=== PATIENT | female | born 1955 | race Caucasian/White ===

== ENCOUNTER 2022-10-30 08:29 | Day surgery (SDC) | payer MEDICARE ==
[2022-10-30] MEDS ORDERED: LIDOCAINE HCL 2% 100 MG/5 ML IJ ONE (08:30)
[2022-10-30] MEDS ORDERED: Versed 2 MG/2 ML Injection IV ONE (09:07)
[2022-10-30] MEDS ORDERED: Versed 2 MG/2 ML Injection ONE (09:09)
[2022-10-30] MEDS ORDERED: DIPRIVAN 200 MG/20 ML IV ONE (09:46)
[2022-10-30] MEDS ORDERED: Lactated Ringers 1,000 ML IV ONE (11:10)
--- NOTE | 2022-10-30 11:48 | XRAY ---
Indication: Bilateral L4-S1 MBB. Intraoperative fluoroscopy provided for 14 seconds. Single digital spot image submitted for interpretation demonstrates posterior needle tips project over the expected left and right L4-S1 nerve roots. Correlate with intraoperative findings/report.
--- NOTE | 2022-10-30 13:02 | XRAY ---
14 seconds of fluoroscopy was used in surgery for a bilateral L4-S1 MBB.
== END 2022-10-30 10:15 | disposition home or self-care (01) ==
LOC: SDC-PAIN 08:29
PROVIDERS: ATTEND Psychiatry & Neurology Pain Medicine
DX: M47.816 Spondylosis without myelopathy or radiculopathy, lumbar region (principal); Z79.899 Other long term (current) drug therapy
CPT/HCPCS: 64493; 64494; 72020; 77002; J2250; J2704